=== PATIENT | female | born 1980 | race Caucasian/White ===

== ENCOUNTER 2019-03-03 22:28 | Emergency (ER) | payer MEDICAID ==
[~2019-03-03] VITALS: Ht 152.4 cm; Wt 68.5 kg
[~2019-03-03 22:28] MED LIST: FLO4 PO; GLU500 PO; MOTRIN800 MG PO; PYR100 PO; ZOFRAN ODT4 MG SL
[2019-03-03 22:41] VITALS: Ht 152.4 cm; Wt 68.5 kg
[2019-03-04 00:44] VITALS: BP 119/75
== END 2019-03-04 00:44 | disposition home or self-care (01) ==
LOC: ED 22:28
DX: R10.32 Left lower quadrant pain (principal); M79.672 Pain in left foot; M25.562 Pain in left knee; E11.9 Type 2 diabetes mellitus without complications; J45.909 Unspecified asthma, uncomplicated; E78.00 Pure hypercholesterolemia, unspecified; Z90.710 Acquired absence of both cervix and uterus

== ENCOUNTER 2020-05-19 22:35 | Emergency (ER) | payer MEDICAID ==
[~2020-05-19] VITALS: Ht 152.4 cm; Wt 68.5 kg
[2020-05-19 22:49] VITALS: Ht 152.4 cm; Wt 68.5 kg
[2020-05-20 00:37] LABS: microscopic required? NO
[2020-05-20 00:44] LABS: BASOPHIL % 0.4 % (0-2); PLATELET COUNT 234 x10^3mcL (130-400); RED CELL DISTRIBUTION WIDTH 12.9 % (11.5-14.5)
[2020-05-20 00:49] LABS: UA SPECIFIC GRAVITY 1.015 (1.005-1.035); urine erythrocyte NEGATIVE (NEGATIVE)
[2020-05-20 01:07] LABS: CALCIUM 8.7 mg/dL (8.5-10.1); CARBON DIOXIDE 26.6 mmol/L (21-32); CHLORIDE SERUM 100 mmol/L (98-107); CREATININE SERUM 0.8 mg/dL (0.6-1.0); GFR1 > 60 mL/min; GLUCOSE SERUM 290 mg/dL (74-106); POTASSIUM SERUM 3.6 mmol/L (3.5-5.1); SODIUM SERUM 135 mmol/L (136-145)
[2020-05-20 01:13] LABS: ALBUMIN 3.6 g/dL (3.4-5.0); ALKALINE PHOSPHATASE 101 U/L (46-116); ALT/SGPT 114 U/L (14-59); AST/SGOT 51 U/L (15-37); BILIRUBIN TOTAL 0.5 mg/dL (0.20-1.00); C REACTIVE PROTEIN 0.5 mg/dL (<=0.9); LACTIC DEHYDROGENASE (LDH) 178 U/L (100-190); TOTAL PROTEIN, SERUM 7.3 g/dL (6.4-8.2)
[2020-05-20 01:59] VITALS: BP 150/92
== END 2020-05-20 01:59 | disposition home or self-care (01) ==
LOC: ED 22:35
PROVIDERS: Emergency Medicine
DX: R06.00 Dyspnea, unspecified (principal); E11.65 Type 2 diabetes mellitus with hyperglycemia; J45.909 Unspecified asthma, uncomplicated; E78.00 Pure hypercholesterolemia, unspecified; E11.9 Type 2 diabetes mellitus without complications; Z90.710 Acquired absence of both cervix and uterus
CPT/HCPCS: 36600; 83880; J1885; Q0092; U0003-CS